=== PATIENT | male | born 1965 ===

== ENCOUNTER 2021-01-12 04:39 | Emergency (ER) | payer MEDICAID ==
[~2021-01-12] VITALS: Ht 167.6 cm; Wt 68.0 kg
[2021-01-12 04:48] VITALS: BP 138/72
== END 2021-01-12 05:00 | disposition left against medical advice (07) ==
LOC: EMS 04:39
DX: M79.18 Myalgia, other site (principal); Z53.21 Procedure and treatment not carried out due to patient leaving prior to being seen by health care provider